=== PATIENT | female | born 1975 | race Caucasian/White ===

== ENCOUNTER 2023-04-22 13:47 | Emergency (ER) | payer OTHER, SELFPAY ==
--- NOTE | 2023-04-22 13:53 | ED.URI ---
HPI - URI/Sore Throat General Chief Complaint: Upper Respiratory Infection Stated Complaint: Sinus Time Seen by Provider: 04/22/23 13:55 Source: patient Mode of arrival: ambulatory Limitations: no limitations History of Present Illness HPI Narrative: Maria Elena is a 47-year-old female patient presenting to the clinic today with complaints of sinus congestion, headache, body aches, chills, and mild sore throat x1 day. She reports that she had a exposure to someone in [place] who tested positive for COVID earlier this week. States her work is wanting her tested for COVID. MD elicited complaint: cough, sore throat, rhinorrhea, nasal congestion, sinus pain and other (Headache) Related Data Home Medications Medication Instructions Recorded Confirmed No Home Medications 04/22/23 04/22/23 Allergies Allergy/AdvReac Type Severity Reaction Status Date / Time No Known Allergies Allergy Verified 04/22/23 14:09 Review of Systems Review of Systems: Pertinent positives per HPI. Patient denies any fever, rash, visual changes, dizziness, shortness of breath, chest pain, palpitations, nausea, vomiting, diarrhea, constipation, abdominal pain, or any urinary issues. PMFSH Comments At the time of my signature, I reviewed and agree with the nursing past medical, surgical, social, and family history. There is no relevant family history pertinent to the patient complaint. Exam Narrative: General: Well-developed, well nourished, in no apparent distress Head: Normocephalic, atraumatic Eyes: Pupils equally round and reactive to light bilaterally, EOM intact, sclera and conjunctive clear, no discharge, lids normal Ears: TMs intact and clear, ear canals clear, no drainage, grossly hearing normal. Nose: Nares patent, clear nasal discharge, no inflammation, no sinus tenderness. Mouth: Oral pharynx without lesions or masses, good dentition, MMM. PND Neck: Supple, trachea midline, no enlargement of anterior or posterior cervical nodes, no thyroid masses or goiter palpable. Cardio: Regular rate and rhythm, s1 and s2 normal, no murmur appreciated. Resp: Clear to auscultation bilaterally, no rhonchi, rales, wheezing or rubs Course Course Emergency Course: Portions of this record may have been created with voice recognition software. Level of Care: Express Care Visit Vital Signs Vital signs: Vital signs reviewed MDM - URI/Sore Throat MDM Narrative Medical decision making narrative: At the time of visit patient is resting comfortably on the exam table. COVID test was positive. Supportive measures were discussed with the patient she voiced understanding discharge instructions and agrees to treatment plan. She denies any health history. Differential Diagnosis Differential diagnosis: Likely upper respiratory infection, otitis media, sinusitis, viral infection, bronchitis, influenza, pharyngitis and other (COVID) Discharge Plan Discharge Clinical Impression: COVID-19 Patient Disposition: Home, Self-Care Condition: Stable Instructions: Antibiotic Form, COVID-19 (Coronavirus Disease 2019) (ED), How to Recover from COVID-19 at Home (ED) Additional Instructions: COVID testing is positive in the clinic today. May take DayQuil/NyQuil for cold/flu symptoms Increase fluids and stay well hydrated Tylenol/motrin for pain/fever Flonase and OTC antihistamines as directed Vicks vapor rub to open sinuses Sinus rinses for congestion Cepacol spray, cough drops, throat lozenges, warm tea with honey/lemon, gargle salt water to soothe throat BRAT diet for diarrhea Clear liquids x 24 hours then advance as tolerated for nausea/vomiting Go to the ED if you develop a worsening in your condition- high fever not controlled by Tylenol or Motrin, dehydration, weakness, lethargy, shortness of breath, or chest pain. Follow up with your PCP in 3-5 days if symptoms persist. Prescriptions: No Action No Home Medications
[2023-04-22 14:06] VITALS: BP 132/75; PULSE 89; RESP 16; TEMP 38.3; O2SAT 100
== END 2023-04-22 14:17 | disposition home or self-care (01) ==
PROVIDERS: Emergency Provider Nurse Practitioner Family
DX: U07.1 COVID-19 (principal)
CPT/HCPCS: 87426; 99213; C9803; G0463

== ENCOUNTER 2023-04-26 13:33 | Emergency (ER) | payer OTHER, SELFPAY ==
[2023-04-26 14:17] VITALS: BP 166/91; PULSE 80; RESP 16; TEMP 36.6; O2SAT 98
--- NOTE | 2023-04-26 16:55 | ED.GENADULT ---
HPI - General Adult General Chief complaint: Nausea/Vomiting/Diarrhea <TAINA Bryant Last Filed: 04/26/23 18:58> Stated complaint: n/v +COVID <TAINA Bryant Last Filed: 04/26/23 18:58> Time Seen by Provider: 04/26/23 16:51 <TAINA Bryant Last Filed: 04/26/23 18:58> Source: patient <TAINA Bryant Last Filed: 04/26/23 18:58> Mode of arrival: ambulatory <TAINA Bryant Last Filed: 04/26/23 18:58> Limitations: no limitations <TAINA Bryant Last Filed: 04/26/23 18:58> History of Present Illness HPI narrative: This is a 48-year-old female who presents to the ED with chief complaint of N/V/D for the last couple of days. She reports she tested positive for COVID last week after traveling back from [place]. She reports her URI symptoms had resolved but since then she has developed the GI symptoms. Reports upper abdominal pain but thinks this is due to the vomiting. She does note that it radiates towards the back. Reports 6 episodes of vomiting in the last couple of days. Reports multiple loose stools. Denies GI bleeding symptoms. Denies chest pain, shortness of breath, cough. <TAINA Bryant Last Filed: 04/26/23 18:58> Related Data Allergies/adverse reactions: Allergies Allergy/AdvReac Type Severity Reaction Status Date / Time No Known Allergies Allergy Verified 04/22/23 14:09 <TAINA Bryant Last Filed: 04/26/23 18:58> Review of Systems Review of Systems: All systems as dictated in HPI <TAINA Bryant Last Filed: 04/26/23 18:58> All systems as dictated in HPI CONSTITUTIONAL: Reports fever, chills ENT: Denies congestion CARDIOVASCULAR: Denies chest pain RESPIRATORY: Denies dyspnea. GASTROINTESTINAL: Reports nausea, vomiting, and diarrhea. <TAINA Mckinnon Last Filed: 04/26/23 23:38> All systems reviewed & are unremarkable except as noted in HPI and below <Komal Childers PA-C - Last Filed: 04/26/23 23:38> [facility] Past Medical History Medical History: Medical History (Updated 04/26/23 @ 23:08 by Komal Childers PA-C) History of depression <Dwayne Lizama PA-C - Last Filed: 04/26/23 18:58> Social History Social History: Social History (Updated 04/26/23 @ 21:38 by Komal Childers PA-C) Substance use: never <Dwayne Lizama PA-C - Last Filed: 04/26/23 18:58> Exam Narrative: GENERAL: Well-appearing, well-nourished, and in no acute distress. HEAD: Normocephalic, atraumatic. EYES: PERRLA and EOMI. ENT: Nares clear, no rhinorrhea or epistaxis. Mucous membranes moist. Oropharynx without tonsillar hypertrophy exudate or other lesions. NECK: Supple. No adenopathy or masses. CHEST: No respiratory distress. Clear to auscultation. No wheezes rales or rhonchi HEART: Regular rate and rhythm. No murmur heard. Normal peripheral pulses. ABDOMEN: Mild epigastric tenderness present. Soft, otherwise nontender, nondistended, normal active bowel sounds. MSK: Normal range of motion. No edema. SKIN: Warm, dry, no rash. NEURO: Alert and oriented x3. No focal deficits. PSYCH: Normal mood and affect. <Dwayne Lizama PA-C - Last Filed: 04/26/23 18:58> GENERAL: Well-appearing, well-nourished, and in no acute distress. HEAD: Normocephalic, atraumatic. EYES: PERRLA and EOMI. ENT: Nares clear, no rhinorrhea or epistaxis. Mucous membranes moist. Oropharynx without tonsillar hypertrophy exudate or other lesions. NECK: Supple. No adenopathy or masses. CHEST: No respiratory distress. Clear to auscultation. No wheezes rales or rhonchi HEART: Regular rate and rhythm. No murmur heard. Normal peripheral pulses. ABDOMEN: Mild epigastric tenderness present. Soft, otherwise nontender, nondistended, normal active bowel sounds. MSK: Normal range of motion. No edema. SKIN: Warm, dry, no rash. NEURO: Alert and oriented x3. No focal deficits. PSYCH: Normal mood and affect. GENERA
[2023-04-26 17:03] LABS: Basophils Percent Auto 0.2 % (0.2-1.2); Eosinophils Absolute Auto 0.1 K/mm3 (0-0.3); Hematocrit 41.5 % (37.0-47.0); Hemoglobin 13.2 g/dL (12.0-15.0); Immature Granulocyte Absolute 0.01 K/mm3 (0.00-0.031); Immature Granulocyte Percent A 0.2 % (0-0.5); Lymphocytes Absolute Auto 1.52 K/mm3 (0.9-3.2); Lymphocytes Percent Auto 37.3 % (18.3-44.2); Mean Corpuscular HGB Conc 31.8 g/dl (32-36); Mean Corpuscular Hemoglobin 28.2 pg (26-34); Mean Corpuscular Volume 88.7 fl (80-100); Mean Platelet Volume 11.4 fl (7.4-10.4); Monocytes Absolute Auto 0.3 K/mm3 (0.1-0.6); Monocytes Percent Auto 6.6 % (2.6-8.5); Neutrophils Absolute Auto 2.2 K/mm3 (1.3-6.7); Neutrophils Percent Auto 53.7 % (45.5-73.1); Platelet Count Result 227 k/mm3 (150-375); Red Blood Count 4.68 M/mm3 (4.2-5.4); Red Cell Distribution Width 12.4 % (11.5-14.5); White Blood Count 4.1 K/mm3 (4.5-10.0)
[2023-04-26 17:12] LABS: Alanine Aminotransferase 28 U/L (6-35); Albumin Level 4.5 g/dL (3.5-5.1); Alkaline Phosphatase 62 U/L (38-126); Anion Gap 7 mmol/L (8-16); Aspartate Amino Transferase 34 U/L (14-36); Bilirubin,Total 0.5 mg/dL (0.2-1.3); Blood Urea Nitrogen 13 mg/dL (7-17); Calcium 8.9 mg/dL (8.4-10.2); Carbon Dioxide 29 mmol/L (22-30); Chloride 101 mmol/L (98-107); Estimated CRCL calculation 87 ml/min; Estimated Glomerular Filt Rate > 60; Glucose 78 mg/dL (65-110); Lipase 41 U/L (23-300); Potassium 4.1 mmol/L (3.4-5.0); Sodium 137 mmol/L (137-145)
[2023-04-26 20:35] VITALS: BP 145/84; PULSE 82; RESP 18; TEMP 36.6; O2SAT 100
[2023-04-26] MEDS: ONDANSETRON INJ 4 MG/2 ML VIAL IV PUSH (20:48)
[2023-04-26] MEDS: SODIUM CHLORIDE 0.9% IV 1,000 ML 999 ML IV CONT (20:49)
--- NOTE | 2023-04-26 21:32 | ED.NAVMDI ---
HPI - Nausea/Vomiting/Diarrhea General Chief complaint: Nausea/Vomiting/Diarrhea Stated complaint: n/v +COVID Time Seen by Provider: 04/26/23 16:51 Related Data Home Medications Medication Instructions Recorded Confirmed No Home Medications 04/22/23 04/22/23 Allergies Allergy/AdvReac Type Severity Reaction Status Date / Time No Known Allergies Allergy Verified 04/22/23 14:09 Course Vital Signs Vital signs: Vital Signs Temperature 97.9 F 04/26/23 14:17 Pulse Rate 80 04/26/23 14:17 Respiratory Rate 16 04/26/23 14:17 Blood Pressure 166/91 H 04/26/23 14:17 Pulse Oximetry 98 04/26/23 14:17 Oxygen Delivery Room Air 04/26/23 14:17 Temperature 97.8 F 04/26/23 20:35 Pulse Rate 82 04/26/23 20:35 Respiratory Rate 18 04/26/23 20:35 Blood Pressure 145/84 H 04/26/23 20:35 Pulse Oximetry 100 04/26/23 20:35 Oxygen Delivery Room Air 04/26/23 20:35 MDM - Nausea/Vomiting/Diarrhea Lab Data 04/26/23 16:49 04/26/23 16:49 Labs: Lab Results 04/26/23 04/26/23 Range/Units 16:49 20:38 WBC 4.1 L (4.5-10.0) K/mm3 RBC 4.68 (4.2-5.4) M/mm3 Hgb 13.2 (12.0-15.0) g/dL Hct 41.5 (37.0-47.0) % MCV 88.7 (80-100) fl MCH 28.2 (26-34) pg MCHC 31.8 L (32-36) g/dl RDW 12.4 (11.5-14.5) % Plt Count 227 (150-375) k/mm3 MPV 11.4 H (7.4-10.4) fl Immature Gran % (Auto) 0.2 (0-0.5) % Neut % (Auto) 53.7 (45.5-73.1) % Lymph % (Auto) 37.3 (18.3-44.2) % [place] % (Auto) 6.6 (2.6-8.5) % Eos % (Auto) 2.0 (0-4.4) % Baso % (Auto) 0.2 (0.2-1.2) % Lymph # (Auto) 1.52 (0.9-3.2) K/mm3 [place] # (Auto) 0.3 (0.1-0.6) K/mm3 Eos # (Auto) 0.1 (0-0.3) K/mm3 Baso # (Auto) 0.0 (0.0-0.1) K/mm3 Abs Immat Gran (auto) 0.01 (0.00-0.031) K/mm3 Absolute Neuts (auto) 2.2 (1.3-6.7) K/mm3 Absolute Nucleated RBC 0.0 (0.0-0.012) K/mm3 Nucleated RBC % 0.0 (0.0-0.2) % Sodium 137 (137-145) mmol/L Potassium 4.1 (3.4-5.0) mmol/L Chloride 101 (98-107) mmol/L Carbon Dioxide 29 (22-30) mmol/L Anion Gap 7 L (8-16) mmol/L BUN 13 (7-17) mg/dL Creatinine 0.70 (0.7-1.0) mg/dL Estim Creat Clear Calc 87 ml/min Estimated GFR > 60 (59 - ) Glucose 78 (65-110) mg/dL Calcium 8.9 (8.4-10.2) mg/dL Total Bilirubin 0.5 (0.2-1.3) mg/dL AST 34 (14-36) U/L ALT 28 (6-35) U/L Alkaline Phosphatase 62 (38-126) U/L Total Protein 8.0 (6.3-8.2) g/dL Albumin 4.5 (3.5-5.1) g/dL Lipase 41 (23-300) U/L Urine Color Pending Urine Appearance Pending Urine pH Pending Ur Specific [place] Pending Urine Protein Pending Urine Glucose (UA) Pending Urine Ketones Pending Ur Blood (Man) Pending Urine Nitrate Pending Urine Bilirubin Pending Urine Urobilinogen Pending Leukocyte Esterase Rfl Pending UCG Bedside Result Negative Reference Range: Negative Discharge Plan Discharge Prescriptions: No Action No Home Medications Follow-up/Referrals: PHYSICIAN NOT ON STAFF,NONSTAFF [Primary Care Provider] -
[2023-04-26 21:35] LABS: Appearance Urine Cloudy (Clear); Bacteria Urine 1+ /hpf; Bilirubin Urine 1+ (Negative); Blood Urine Negative (Negative); Color Urine Dark Yellow (Yellow); Glucose Urine UA Negative (Negative); Hyaline Casts Urine Present /lpf; Ketones Urine 1+ mg/dL (Negative); Leukocyte Esterase Ur Negative LEU/UL (Negative); Nitrate Urine Negative (Negative); Protein Urine Negative (Negative); Specific Grav Ur 1.028 (1.001-1.035); Squamous Epithelial Cell Urine Moderate /hpf (Few); Urobilinogen Urine 0.2 mg/dL (<2.0); pH Urine 5.5 (5.0-9.0)
[2023-04-26 21:37] LABS: Add Urine Microscopic? YES
[2023-04-26] MEDS: KETOROLAC 15 MG/ML VIAL (*BKC) IV PUSH (21:37)
[2023-04-26 21:51] VITALS: BP 141/81; PULSE 77; RESP 16; O2SAT 100
[2023-04-26] MEDS: FAMOTIDINE 20 MG/2 ML VIAL IV PUSH (23:06)
[2023-04-26] MEDS: LORazepam INJ (*CRX) 2 MG/ML VIAL 0.5 MG IV PUSH (23:06)
[2023-04-26 23:45] VITALS: BP 127/84; PULSE 85; RESP 15; TEMP 36.7; O2SAT 100
== END 2023-04-26 23:46 | disposition home or self-care (01) ==
PROVIDERS: Physician Assistant; Emergency Provider Physician Assistant
DX: U07.1 COVID-19 (principal); R11.2 Nausea with vomiting, unspecified; R10.10 Upper abdominal pain, unspecified; F32.A Depression, unspecified
CPT/HCPCS: 36415; 80053; 81001; 81025; 83690; 85025; 87086; 87088; 96361; 96374; 96375; 99284; J1885; J2060; J2405; J7030